=== PATIENT | female | born 2000 | race African-American/Black ===

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

== ENCOUNTER → 2021-01-22 | Outpatient (CLI) | payer OTHER ==
--- NOTE | 2021-01-22 12:28 | XR ---
Right hip HISTORY: Right hip pain for 2 months 2 views the right hip Bone mineralization, joint spaces and alignment are maintained. IMPRESSION: No acute abnormalities evident.
== END | disposition home or self-care (01) ==
LOC: RADXRMAIN 12:00
PROVIDERS: ATTEND Internal Medicine
DX: M25.551 Pain in right hip (principal)
CPT/HCPCS: 73502